=== PATIENT | male | born 1960 | race Caucasian/White ===

== ENCOUNTER 2023-09-01 11:28 | Observation (INO) | payer BC ==
[2023-09-01 12:30] LABS: VENOUS BASE EXCESS -3.6 mmol/L (-2-2); VENOUS O2 SATURATION 50.2 % (70-80); VENOUS PCO2 44.6 mmHg (38-52); VENOUS PH 7.319 (7.310-7.410)
[2023-09-01 12:35] LABS: BASO % 0.9 % (0-2.0); EOS % 6.1 % (0-4.5); HEMATOCRIT 30.9 % (35.4-49); HEMOGLOBIN 10.4 GM/dL (11.7-16.9); LYMPH % 26.3 % (8-40); MCHC 33.6 g/dl (32.0-35.9); MEAN CELL VOLUME 89.2 fl (80-96); MEAN PLT VOLUME 9.1 fl (7.5-11.1); MONO % 7.2 % (3.8-10.2); NEUT % 59.5 % (42.8-82.8); PLATELET COUNT 234 10^3/uL (134-434); RBC 3.46 M/mm3 (4.00-5.60); RDW 13.1 % (11.9-15.9); WHITE BLOOD COUNT 7.8 K/mm3 (4.0-10.0)
[2023-09-01 12:53] LABS: POTASSIUM 5.5 mmol/L (3.5-5.1)
[2023-09-01 12:54] LABS: BLOOD UREA NITROGEN 39.3 mg/dL (7-18); CALCIUM 8.5 mg/dL (8.5-10.1)
[2023-09-01 12:55] LABS: ALBUMIN 2.8 g/dl (3.4-5.0)
[2023-09-01 12:57] LABS: CREATININE 1.4 mg/dL (0.55-1.3)
[2023-09-01 13:00] LABS: BILIRUBIN,TOTAL 0.2 mg/dL (0.2-1); TOT PROT 5.8 g/dl (6.4-8.2)
[2023-09-01 13:03] LABS: N-TERMINAL BNP 66.9 pg/ml (5-125)
[2023-09-01] MEDS: SODIUM ZIRCONIUM CYCLOSILICATE (LOKELMA) 5 GM PACKET PO SCH (14:30)
[2023-09-01] MEDS ORDERED: SODIUM ZIRCONIUM CYCLOSILICATE (LOKELMA) 10 GM PACKET ONE (14:33)
[2023-09-01 18:39] LABS: EPI CELLS 6 /uL (0-25.1); HYALINE CASTS 1 /uL (0-3.1); PH,URINE 5.5 (5.0-8.0); URINE APPEARANCE CLEAR; URINE BACTERIA 4 /uL (0-1359); URINE BILIRUBIN NEGATIVE (NEGATIVE); URINE COLOR YELLOW; URINE GLUCOSE (UA) NEGATIVE (NEGATIVE); URINE KETONE NEGATIVE (NEGATIVE); URINE LEUK ESTERASE NEGATIVE (NEGATIVE); URINE NITRITE NEGATIVE (NEGATIVE); URINE PROTEIN 3+ (NEGATIVE); URINE RBC 23 /uL (0-23.9); URINE UROBILINOGEN 0.2 mg/dL (0.2-1.0); URINE WBC 6 /uL (0-25.8)
[2023-09-01 21:20] VITALS: RESP 18; BMI 25.2
[2023-09-01] MEDS ORDERED: LISINOPRIL 5 MG TABLET PO ONE (21:25)
[2023-09-01] MEDS: amLODIPine BESYLATE 5 MG TABLET (FP) PO ONE (22:21)
[2023-09-01] MEDS: HEPARIN NA (PORCINE) 5,000 UNITS/ML 1ML VIAL SQ SCH (22:22)
[2023-09-02] MEDS: INSULIN (LEVEMIR) 100 UNITS/ML UNITS SQ SCH (00:17)
[2023-09-02] MEDS: SODIUM CHLORIDE 1,000 ML IV SCH (00:18)
[2023-09-02] MEDS: INSULIN ASPART SLIDING SCALE (NOVOLOG) 1 VIAL SQ SCH (06:29)
[2023-09-02] MEDS ORDERED: INSULIN ASPART SLIDING SCALE (NOVOLOG) 1 VIAL SQ SCH (07:00)
[2023-09-02 08:26] LABS: HEMATOCRIT 30.7 % (35.4-49); HEMOGLOBIN 10.4 GM/dL (11.7-16.9); MCH 29.7 pg (25.7-33.7); MCHC 33.8 g/dl (32.0-35.9); MEAN CELL VOLUME 87.8 fl (80-96); MEAN PLT VOLUME 9.7 fl (7.5-11.1); PLATELET COUNT 227 10^3/uL (134-434); RBC 3.49 M/mm3 (4.00-5.60); RDW 13.2 % (11.9-15.9); WHITE BLOOD COUNT 7.5 K/mm3 (4.0-10.0)
[2023-09-02 08:36] LABS: POTASSIUM 4.6 mmol/L (3.5-5.1)
[2023-09-02 08:38] LABS: BLOOD UREA NITROGEN 28.2 mg/dL (7-18); CALCIUM 7.9 mg/dL (8.5-10.1)
[2023-09-02 08:41] LABS: CREATININE 1.1 mg/dL (0.55-1.3); PHOSPHOROUS 3.8 mg/dL (2.5-4.9)
[2023-09-02] MEDS: SODIUM ZIRCONIUM CYCLOSILICATE (LOKELMA) 5 GM PACKET PO SCH (10:11)
[2023-09-02 12:24] VITALS: BP 142/74; PULSE 70; TEMP 98.2
[2023-09-02] MEDS ORDERED: ATORVASTATIN CA 10 MG TABLET (FP) PO SCH (22:00)
== END 2023-09-02 16:22 | disposition home or self-care (01) ==
LOC: JER 11:28 → JERBED 13:53 → J4S 20:06
PROVIDERS: ADMIT Internal Medicine; ATTEND Internal Medicine
PROC: 3E013VG Introduction of Insulin into Subcutaneous Tissue, Percutaneous Approach (ICD-10-PCS; principal; 2023-09-01)
PROC: 3E0337Z Introduction of Electrolytic and Water Balance Substance into Peripheral Vein, Percutaneous Approach (ICD-10-PCS; 2023-09-01)
DX: E87.5 Hyperkalemia (principal); N17.9 Acute kidney failure, unspecified; Z72.0 Tobacco use; D64.9 Anemia, unspecified; E11.9 Type 2 diabetes mellitus without complications; Z79.4 Long term (current) use of insulin; I10 Essential (primary) hypertension
CPT/HCPCS: 0241U-QW; 36415; 76775-TC; 80048; 80053; 81003; 82803; 82962; 83735; 83880; 84100; 84484; 85025; 85027; 93005; 93010; 99285-25; G0378; J1644

== ENCOUNTER 2023-09-12 12:13 | Emergency (ER) | payer BC ==
[2023-09-12 12:20] VITALS: BP 168/73; PULSE 82; RESP 16; TEMP 97; BMI 25.3
[2023-09-12 13:24] LABS: BASO % 0.8 % (0-2.0); EOS % 5.8 % (0-4.5); HEMATOCRIT 28.1 % (35.4-49); HEMOGLOBIN 9.7 GM/dL (11.7-16.9); LYMPH % 29.6 % (8-40); MCH 30.6 pg (25.7-33.7); MCHC 34.5 g/dl (32.0-35.9); MEAN CELL VOLUME 88.5 fl (80-96); MEAN PLT VOLUME 9.1 fl (7.5-11.1); MONO % 9.2 % (3.8-10.2); NEUT % 54.6 % (42.8-82.8); PLATELET COUNT 232 10^3/uL (134-434); RBC 3.17 M/mm3 (4.00-5.60); RDW 13.2 % (11.9-15.9); WHITE BLOOD COUNT 7.5 K/mm3 (4.0-10.0)
[2023-09-12 13:47] LABS: POTASSIUM 4.8 mmol/L (3.5-5.1)
[2023-09-12 13:48] LABS: ALBUMIN 2.7 g/dl (3.4-5.0); CALCIUM 7.9 mg/dL (8.5-10.1)
[2023-09-12 13:53] LABS: BILIRUBIN,TOTAL 0.3 mg/dL (0.2-1); TOT PROT 5.8 g/dl (6.4-8.2)
[2023-09-12 14:08] LABS: CREATININE 1.3 mg/dL (0.55-1.3)
== END 2023-09-12 15:46 | disposition home or self-care (01) ==
LOC: JER 12:13
DX: R60.0 Localized edema (principal); R07.89 Other chest pain
CPT/HCPCS: 36415; 71045-TC-FY; 80053; 84484; 85025; 99284-25